=== PATIENT | male | born 1955 | race Caucasian/White ===

== ENCOUNTER 2018-02-14 22:27 | Emergency (ER) | payer BC ==
--- NOTE | 2018-02-14 22:48 | ED ---
Abdominal Pain HPI - General Chief Complaint: Abdominal Pain Stated Complaint: Kidney stone Time Seen by Provider: 02/14/18 22:47 Source: patient Mode of arrival: ambulatory Limitations: no limitations - History of Present Illness Initial Comments: Bryon is a 62-year-old male who presents emergency department today for evaluation of left-sided flank pain. Patient reports that he woke up Tuesday with left-sided flank aching-like pain. Initially thought it was a muscle spasm and try to stretch and walk around. He reports that throughout the days had persistent pain radiating from his left flank into his groin. Patient reports the pain is associated with urinary frequency but no gross hematuria or dysuria. Patient reports he was seen at a walk-in clinic where urinalysis did reveal blood in his urine and he was advised that he likely has a kidney stone. However that facility was unable to perform any diagnostic imaging and advised him to seek care in the ER. Patient came to the ER for further evaluation. Upon arrival he reports 7 out of 10 colicky left-sided flank pain. - Related Data Home Medications Medication Instructions Recorded Confirmed Atenolol [Tenormin] 50 mg PO DAILY 02/14/18 02/14/18 Atorvastatin [Lipitor] 20 mg PO DAILY 02/14/18 02/14/18 Losartan Potassium 100 mg PO DAILY 02/14/18 02/14/18 Tamsulosin HCl [Flomax] 0.4 mg PO DAILY 02/14/18 02/14/18 amLODIPine [Norvasc] 5 mg PO DAILY 02/14/18 02/14/18 Previous Rx's Medication Instructions Recorded Tamsulosin [Flomax] 0.4 mg PO DAILY #7 cap 02/15/18 Allergies Allergy/AdvReac Type Severity Reaction Status Date / Time No Known Allergies Allergy Verified 02/14/18 22:54 Review of Systems ROS Statement: Those systems with pertinent positive or pertinent negative responses have been documented in the HPI. ROS Other: All systems not noted in ROS Statement are negative. Past Medical History Past Medical History: Hyperlipidemia, Hypertension History of Any Multi-Drug Resistant Organisms: None Reported Past Surgical History: Hernia Repair, Orthopedic Surgery Past Psychological History: No Psychological Hx Reported Smoking Status: Never smoker Past Alcohol Use History: Occasional Past Drug Use History: None Reported General Exam - General Exam Comments Initial Comments: Physical Exam GENERAL: Patient is well-developed and well-nourished. Patient is nontoxic and well- hydrated and is in no distress. HENT: Normocephalic, Atraumatic. EYES: PERRL, EOMI PULMONARY: Unlabored respirations. No audible rales rhonchi or wheezing was noted. CARDIOVASCULAR: There is a regular rate and rhythm without any murmurs gallops or rubs. ABDOMEN: Soft and nontender with normal bowel sounds. No tenderness to palpation of the abdomen Mild tenderness to palpation of the left flank SKIN: Skin is clear with no lesions or rashes and otherwise unremarkable. : Deferred NEUROLOGIC: Patient is alert and oriented x3. Moving all extremities spontaneously MUSCULOSKELETAL: Normal extremities with adequate strength and full range of motion. No lower extremity swelling or edema. No calf tenderness. PSYCHIATRIC: Normal psychiatric evaluation. Limitations: no limitations Limitations: no limitations Course Vital Signs 02/14/18 02/15/18 22:35 00:52 Temperature 98.7 F 97.9 F Pulse Rate 73 78 Respiratory 20 19 Rate Blood Pressure 170/105 142/79 O2 Sat by Pulse 99 98 Oximetry Medical Decision Making - Medical Decision Making The patient was seen and evaluated, history was obtained from the patient Patient with likely left-sided kidney stone, no history of kidney stones, agreeable to plan for computed tomography scan Urinalysis no evidence of infection, trace blood Toradol was ordered for pain Computed tomography scan reveals a 4 mm UVJ stone Patient's pain completely resolved after Toradol CT results were discussed with the patient, plan for discharge home with supportive care, aggressive oral hydration, Flomax for pain management I offered the patient a urine strainer to strain his urine for stone collection and analysis we'll refer to urology for follow-up All questions pertaining to care were answered best my ability patient was discharged home in stable condition - Lab Data Result diagrams: 02/14/18 23:00 02/14/18 23:00 Lab Results 02/14/18 02/14/18 02/14/18 Range/Units 23:00 23:00 23:00 WBC 15.7 H (3.8-10.6) k/uL RBC 5.23 (4.30-5.90) m/uL Hgb 16.6 (13.0-17.5) gm/dL Hct 48.8 (39.0-53.0) % MCV 93.5 (80.0-100.0) fL MCH 31.7 (25.0-35.0) pg MCHC 33.9 (31.0-37.0) g/dL RDW 12.7 (11.5-15.5) % Plt Count 223 (150-450) k/uL Neutrophils % 87 % Lymphocytes % 7 % Monocytes % 4 % Eosinophils % 1 % Basophils % 0 % Neutrophils # 13.7 H (1.3-7.7) k/uL Lymphocytes # 1.1 (1.0-4.8) k/uL Monocytes # 0.7 (0-1.0) k/uL Eosinophils # 0.2 (0-0.7) k/uL Basophils # 0.0 (0-0.2) k/uL Sodium 139 (137-145) mmol/L Potassium 4.6 (3.5-5.1) mmol/L Chloride 105 (98-107) mmol/L Carbon Dioxide 22 (22-30) mmol/L Anion Gap 12 mmol/L BUN 25 H (9-20) mg/dL Creatinine 1.07 (0.66-1.25) mg/dL Est GFR (CKD-EPI)AfAm 87 (>60 ml/min/1.73 sqM) Est GFR (CKD-EPI)NonAf 75 (>60 ml/min/1.73 sqM) Glucose 119 H (74-99) mg/dL Calcium 9.7 (8.4-10.2) mg/dL Total Bilirubin 1.0 (0.2-1.3) mg/dL AST 35 (17-59) U/L ALT 48 (21-72) U/L Alkaline Phosphatase 60 (38-126) U/L Total Protein 7.1 (6.3-8.2) g/dL Albumin 4.6 (3.5-5.0) g/dL Lipase 25 (23-300) U/L Urine Color Yellow Urine Appearance Clear (Clear) Urine pH 5.5 (5.0-8.0) Ur Specific [place] 1.028 (1.001-1.035) Urine Protein Trace H (Negative) Urine Glucose (UA) Negative (Negative) Urine Ketones 2+ H (Negative) Urine Blood Trace H (Negative) Urine Nitrite Negative (Negative) Urine Bilirubin Negative (Negative) Urine Urobilinogen <2.0 (<2.0) mg/dL Ur Leukocyte Esterase Negative (Negative) Urine RBC 1 (0-5) /hpf Urine WBC <1 (0-5) /hpf Urine Mucus Rare H (None) /hpf Disposition Clinical Impression: Calculus of distal left ureter Disposition: HOME SELF-CARE Condition: Good Prescriptions: Tamsulosin [Flomax] 0.4 mg PO DAILY #7 cap Is patient prescribed a controlled substance at d/c from ED?: No Referrals: Syed Powell MD [Primary Care Provider] - 1-2 days Kai Scott MD [STAFF PHYSICIAN] - 1-2 days
[2018-02-14 23:25] LABS: Basophils % (A) 0 %; Eosinophils # (A) 0.2 k/uL (0-0.7); Eosinophils % (A) 1 %; HCT 48.8 % (39.0-53.0); HGB 16.6 gm/dL (13.0-17.5); Lymphocytes # (A) 1.1 k/uL (1.0-4.8); Lymphocytes % (A) 7 %; MCH 31.7 pg (25.0-35.0); MCHC 33.9 g/dL (31.0-37.0); MCV 93.5 fL (80.0-100.0); Mean Platelet Volume 6.8; Monocytes # (A) 0.7 k/uL (0-1.0); Monocytes % (A) 4 %; Neutrophils # (A) 13.7 k/uL (1.3-7.7); Neutrophils % (A) 87 %; Platelet Count 223 k/uL (150-450); RBC 5.23 m/uL (4.30-5.90); RDW 12.7 % (11.5-15.5); WBC 15.7 k/uL (3.8-10.6)
--- NOTE | 2018-02-14 23:26 | XR ---
EXAMINATION TYPE: XR KUB DATE OF EXAM: 02/14/2018 COMPARISON: NONE HISTORY: Hematuria TECHNIQUE: 2 views FINDINGS: 2 upright views of the abdomen were obtained. There is no sign of intestinal obstruction or pneumoperitoneum. Fecal pattern is normal. There is no evidence of a mass. There are no definite kj al calculi. IMPRESSION: Nonacute abdomen.
[2018-02-14 23:28] LABS: Appearance,Urine Clear (Clear); Bilirubin,Urine Negative (Negative); Blood,Urine Trace (Negative); Color,Urine Yellow; Glucose,Urine (UA) Negative (Negative); Ketones,Urine 2+ (Negative); Leukocyte Esterase,Urine Negative (Negative); Mucus,Urine Rare /hpf; Nitrite,Urine Negative (Negative); PH, Urine 5.5 (5.0-8.0); Protein,Urine Trace (Negative); RBC,Urine 1 /hpf (0-5); Specific Gravity,Urine 1.028 (1.001-1.035); Urobilinogen,Urine <2.0 mg/dL (<2.0); WBC,Urine <1 /hpf (0-5)
[2018-02-14 23:34] LABS: Albumin 4.6 g/dL (3.5-5.0); Calcium 9.7 mg/dL (8.4-10.2); Potassium 4.6 mmol/L (3.5-5.1); Total Protein 7.1 g/dL (6.3-8.2)
[2018-02-14] MEDS ORDERED: KETOROLAC 30 MG/ML 1 ML VIAL IVP ONE (23:39)
--- NOTE | 2018-02-15 00:02 | CT ---
EXAMINATION TYPE: CT abdomen pelvis wo con DATE OF EXAM: 02/14/2018 COMPARISON: None HISTORY: flank pain CT DLP: 794.7 mGycm Automated exposure control for dose reduction was used. TECHNIQUE: Helical acquisition of images was performed from the lung bases through the pelvis. FINDINGS: There is mild subsegmental atelectasis at the lung bases. Heart size is normal. There is no pericardi al effusion. Stomach appears normal. Liver spleen pancreas gallbladder appear normal. Bile ducts are not dilated. There is no adrenal mass. There is bilateral perinephric stranding. There is left-sided hydronephrosis. There is proximal left side periureteral edema. There is an approximate 4 mm calculus near the left ureterovesical junction. I see no definite calculi within the kidneys. There is no retroperitoneal adenopathy. There is no mesenteric adenopathy or edema. The bladder diste nds smoothly. There is prostatic calcification. There is no inguinal hernia. I see no intestinal wall thickening. There are no dilated loops. The appendix appears normal. Abdominal aorta is atheromatous . There is no ascites. There is no sign of free air. There is some degenerative disc space narrowing at L5-S1. The posterior elements are intact. The bony pelvis appears intact. I see no evidence of a f racture. IMPRESSION: THERE IS OBSTRUCTING CALCULUS AT THE LEFT URETEROVESICAL JUNCTION. LEFT-SIDED HYDRONEPHROSIS AND HYDR OURETER WITH EDEMA. BILATERAL PERINEPHRIC EDEMA CONSISTENT WITH PREVIOUS OBSTRUCTIONS.
[2018-02-15 01:04] VITALS: BP 142/79; PULSE 78; RESP 19; TEMP 97.9
== END 2018-02-15 00:53 | disposition home or self-care (01) ==
LOC: EC 22:27
DX: N20.1 Calculus of ureter (principal); E78.5 Hyperlipidemia, unspecified; I10 Essential (primary) hypertension; Z79.899 Other long term (current) drug therapy
CPT/HCPCS: 36415; 80053; 83690; 85025; 81001; 74018; 74176; 99284; 96374; J1885

== ENCOUNTER 2019-12-27 11:07 | Day surgery (SDC) | payer BC ==
[2019-12-25 16:04] VITALS: BMI 30.2
[~2019-12-27 11:07] MED LIST: LACTATED RINGERS 1,000 ML IV SCH
[2019-12-27 11:50] VITALS: TEMP 97.4
[2019-12-27] MEDS ORDERED: LIDOCAINE 1% (10MG/ML) FOR IV START INTRADERMA ONE (12:00)
[2019-12-27] MEDS ORDERED: LIDOCAINE 1% INJ 10MG/ML (20 ML MDV) ONE (12:18)
[2019-12-27] MEDS ORDERED: PROPOFOL 10 MG/ML 20 ML VIAL IV ONE (12:18)
--- NOTE | 2019-12-27 12:48 | P.PCN ---
Date of Procedure: 12/27/19 Description of Procedure: BRIEF HISTORY: Patient is a 64-year-old male presenting for outpatient colonoscopy for screening for malignant neoplasm in the colon. He reports last colonoscopy was approximately 12 years ago. No history of polyps. No family history of colon cancer. No change in bowel habits. PROCEDURE PERFORMED: Colonoscopy with polypectomy. PREOPERATIVE DIAGNOSIS: Screening for malignant neoplasm of the colon, patient reports last colonoscopy 12 years ago. ESTIMATED BLOOD LOSS: Minimal. IV sedation per Anesthesia. PROCEDURE: After informed consent was obtained, the patient, was brought into the endoscopy unit. IV sedation was administered by Anesthesia under continuous monitoring. Digital rectal examination was normal. Initially the Olympus CF-190 flexible video colonoscope was then inserted in the rectum, gradually advanced into the cecum without any difficulty. Careful examination was performed as the scope was gradually being withdrawn. Ileocecal valve and the appendiceal orifice were visualized and appeared normal. Prep was excellent. Mucosa of the cecum, ascending colon, transverse colon, descending colon, sigmoid colon, and rectum appeared normal. Diminutive 1 mm sigmoid colon polyp removed cold forcep polypectomy. 2 diminutive rectal polyps measuring 1-2 mm in size removed with cold forcep polypectomy. A few scattered diverticula noted in the sigmoid colon. Retroflexion was performed in the rectum and no lesions were seen. The patient tolerated the procedure well. IMPRESSION: 3 diminutive polyps measuring 1-2 mm removed from the rectum and sigmoid with cold forcep polypectomy. Mild sigmoid diverticulosis. RECOMMENDATIONS: Findings of this examination were discussed with the patient and his family. Okay to resume diet. Okay to resume medication. Await pathology from polypectomies. Would recommend repeat colonoscopy in 7 years for history of colon polyps, pending pathology.
[2019-12-27 13:28] VITALS: RESP 16
[2019-12-27 13:41] VITALS: BP 110/74; PULSE 88
== END 2019-12-27 13:42 | disposition home or self-care (01) ==
LOC: ORWHC2ENDO 11:07
PROVIDERS: ATTEND Internal Medicine
DX: Z12.11 Encounter for screening for malignant neoplasm of colon (principal); K63.5 Polyp of colon; K62.1 Rectal polyp; K57.30 Diverticulosis of large intestine without perforation or abscess without bleeding; I10 Essential (primary) hypertension; E78.5 Hyperlipidemia, unspecified; Z88.0 Allergy status to penicillin; Z79.899 Other long term (current) drug therapy; Z98.890 Other specified postprocedural states; Z87.891 Personal history of nicotine dependence
CPT/HCPCS: 88305; 45380; J2001; J2704